=== PATIENT | female | born 1995 | race Caucasian/White ===

== ENCOUNTER 2019-09-11 15:04 | Emergency (ER) | payer OTHER, MEDICAID ==
[~2019-09-11] VITALS: Ht 162.6 cm; Wt 50.0 kg
[2019-09-11] MEDS ORDERED: 0.9 % SODIUM CHLORIDE 10 ML DISP.SYRIN. IV PRN (15:30)
--- NOTE | 2019-09-11 15:46 | PHYS DOC ---
General Adult EDM: Chief Complaint: SEIZURE HPI: HPI: Patient is a 23 year old female who presents via EMS for seizure. Patient was at home and suffered a witnessed seizure prompting mother to call EMS. Patient has a known history of seizures with apparent increased frequency the last 1 to 2 months. Per mother, patient has not been compliant with home antiepileptics and opts to smoke marijuana instead for seizure prophylaxis. Patient hit her head and reportedly has a locked right jaw which has happened with previous seizures. Patient is postictal on arrival Review of Systems: Review of Systems: ROS unable to be obtained given patient's postictal state Heart Score: HEART Score for Chest Pain: HEART Score for Chest Pain Response (Comments) Value History Slighlty/Non-Suspicious 0 ECG Normal 0 Age < 45 0 Risk Factors No Risk Factors 0 Total 0 Risk Factors: Risk Factors: DM, Current or recent (<one month) smoker, HTN, HLP, family history of CAD, obesity. Risk Scores: Score 0 - 3: 2.5% MACE over next 6 weeks - Discharge Home Score 4 - 6: 20.3% MACE over next 6 weeks - Admit for Clinical Observation Score 7 - 10: 72.7% MACE over next 6 weeks - Early Invasive Strategies Current Medications: Current Medications Medications (Trade) Dose Ordered Sig/Ling Start Time Stop Time Status Last Admin Dose Admin Sodium Chloride (Normal Saline Flush) 10 ml QSHIFT PRN 09/11/19 15:30 UNV Physical Exam: PE: Constitutional: Well developed, well nourished, no acute distress, non-toxic appearance. Appears postictal [] HENT: Normocephalic, atraumatic, bilateral external and internal ears normal, no hemotympanum or mesa sign, oropharynx moist, no oral exudates, no dental trauma. Nose normal. No palpable abnormalities of facial bones. Right jaw in locked position consistent with TMJ, no crepitus appreciated [] Eyes: PERRLA, EOMI, conjunctiva normal, no discharge. [] Neck: Normal range of motion, no tenderness, supple, no stridor. [] Cardiovascular:Heart rate regular rhythm, no murmur [] Lungs & Thorax: Bilateral breath sounds clear to auscultation [] Abdomen: Bowel sounds normal, soft, no tenderness, no masses, no pulsatile masses. [] Skin: Warm, dry, no erythema, no rash. [] Back: No tenderness, no CVA tenderness. [] Extremities: No tenderness, no cyanosis, no clubbing, ROM intact, no edema. [] Neurologic: Alert, oriented to person and place only, normal motor function, normal sensory function, no focal deficits noted. [] Psychologic: Affect normal, judgement normal, mood normal. [] Current Patient Data: Labs: Laboratory Tests Test 09/11/19 16:20 09/11/19 16:32 09/11/19 16:57 Urine Opiates Screen Neg Urine Methadone Screen Neg Urine Barbiturates Neg Urine Phencyclidine Screen Neg Urine Amphetamine/Methamphetamine Neg Urine Benzodiazepines Screen Neg Urine Cocaine Screen Neg Urine Cannabinoids Screen Pos Urine Ethyl Alcohol Neg Bedside Urine HCG, Qualitative Hcg negative White Blood Count 10.6 x10^3/uL Red Blood Count 4.71 x10^6/uL Hemoglobin 13.8 g/dL Hematocrit 40.3 % Mean Corpuscular Volume 86 fL Mean Corpuscular Hemoglobin 29 pg Mean Corpuscular Hemoglobin Concent 34 g/dL Red Cell Distribution Width 13.1 % Platelet Count 235 x10^3/uL Neutrophils (%) (Auto) 74 % Lymphocytes (%) (Auto) 17 % Monocytes (%) (Auto) 4 % Eosinophils (%) (Auto) 4 % Basophils (%) (Auto) 1 % Neutrophils # (Auto) 7.9 x10^3/uL Lymphocytes # (Auto) 1.8 x10^3/uL Monocytes # (Auto) 0.4 x10^3/uL Eosinophils # (Auto) 0.4 x10^3/uL Basophils # (Auto) 0.1 x10^3/uL Sodium Level 140 mmol/L Potassium Level 4.1 mmol/L Chloride Level 104 mmol/L Carbon Dioxide Level 26 mmol/L Anion Gap 10 Blood Urea Nitrogen 11 mg/dL Creatinine 0.8 mg/dL Estimated GFR (Cockcroft-Gault) 89.7 BUN/Creatinine Ratio 14 Glucose Level 86 mg/dL Lactic Acid Level 0.7 mmol/L Calcium Level 8.3 mg/dL Total Bilirubin 0.3 mg/dL Aspartate Amino Transf (AST/SGOT) 13 U/L Alanine Aminotransferase (ALT/SGPT) 14 U/L Alkaline Phosphatase 105 U/L Troponin I Quantitative 0.019 ng/mL Total Protein 6.7 g/dL Albumin 3.9 g/dL Albumin/Globulin Ratio 1.4 Current Medications Medications (Trade) Dose Ordered Sig/Ling Route PRN Reason Start Time Stop Time Status Last Admin Dose Admin Sodium Chloride (Normal Saline Flush) 10 ml QSHIFT PRN IV AFTER MEDS AND BLOOD DRAWS 09/11/19 15:30 09/11/19 19:49 DC Morphine Sulfate (Morphine Sulfate) 4 mg 1X ONCE IV 09/11/19 17:00 09/11/19 17:01 DC 09/11/19 17:00 Ondansetron HCl (Zofran) 4 mg 1X ONCE IVP 09/11/19 17:00 09/11/19 17:05 DC 09/11/19 17:01 Diphenhydramine HCl (Benadryl) 25 mg 1X ONCE IVP 09/11/19 17:30 09/11/19 17:31 DC 09/11/19 17:27 Diphenhydramine HCl (Benadryl) 50 mg STK-MED ONCE .ROUTE 09/11/19 17:25 09/11/19 17:25 DC Vital Signs: Vital Signs Date Time Temp Pulse Resp B/P (MAP) Pulse Ox O2 Delivery O2 Flow Rate FiO2 09/11/19 18:32 78 18 100 09/11/19 18:17 86 17 100 09/11/19 18:02 82 100 09/11/19 17:58 78 18 100 09/11/19 17:32 96 100 09/11/19 17:17 82 19 100 09/11/19 17:02 80 99 09/11/19 17:00 18 98 Room Air 09/11/19 16:47 92 20 99 09/11/19 16:32 82 98 09/11/19 16:23 88 19 98 09/11/19 16:02 86 98 09/11/19 15:47 92 20 94 09/11/19 15:32 100 100 09/11/19 15:17 108 22 99 09/11/19 15:05 98.0 106 20 127/82 (97) 97 Room Air 98.0 EKG: EKG: EKG obtained and interpreted by myself at 1544 hrs., normal sinus rhythm at 91 bpm, unremarkable intervals, no axis deviation, no ischemic findings, no STEMI Radiology/Procedures: Radiology/Procedures: PROCEDURE: CT HEAD WO CONTRAST Exam: CT head INDICATION: Seizure TECHNIQUE: Sequential axial images through the head were obtained without the administration of IV contrast. Comparisons: None FINDINGS: No focal parenchymal lesion or hemorrhage is identified. There is no midline shift or sulcal effacement. No acute vascular territory infarction is identified. Webster-white distinction is preserved. The ventricular system is within normal limits without compression hydrocephalus. The basal cisterns are well maintained. The visualized portions of the paranasal sinuses and mastoid air cells are well-pneumatized. No acute fractures. IMPRESSION: No acute intracranial abnormality. Exposure: One or more of the following in the visualized dose reduction techniques were utilized for this examination: 1. Automated exposure control 2. Adjustment of the MA and/or KV according to patient size Use of iterative of reconstructive technique Electronically signed by: Yanely Porter MD (09/11/2019 7:02 PM) [id number] PROCEDURE: FACIAL BONES 3+V EXAM: FACIAL BONES 3+V. HISTORY: Locked jaw on the right. COMPARISON: None. FINDINGS: No facial fractures are identified. This examination does not profile the temporomandibular joints, but the mandibular condyles appear normally seated bilaterally. No facial fractures are identified. The paranasal sinuses and mastoid air cells appear normally aerated. IMPRESSION: 1. This examination does not profile the temporomandibular joints, but the mandibular condyles appear normally seated. Electronically signed by: Osbaldo Nix MD (09/11/2019 7:10 PM) [facility] DICTATED and SIGNED BY: SUKUMAR NIX MD DATE: 09/11/191909 PROCEDURE: CHEST AP ONLY EXAM: CHEST 1 VIEW History: Seizure COMPARISON: None available. TECHNIQUE: Single portable radiograph of the chest FINDINGS: The cardiac silhouette is unremarkable. The lungs are clear bilaterally. The costophrenic sulci are clear and well demarcated. IMPRESSION: No radiographic evidence of an acute cardiopulmonary process. Electronically signed by: David Baker MD (09/11/2019 5:34 PM) [id number] Course & Med Decision Making: Course & Med Decision Making Patient seen by myself on immediate arrival Hemodynamically stable, patent airway, vital signs unremarkable HPI limited, physical exam non-concerning for any emergent pathology Pertinent Labs and Imaging studies ordered and reviewed. (See chart for details) Patient observed in ER for several hours with numerous reexaminations. Improvement in post ictal state back to baseline mentation per apurva who was at bedside Patient suffered mild superficial allergic reaction (rash) that responded well to Benadryl administration Discussed ED course which was grossly non-concerning. Patient's right jaw dysfunction improved drastically throughout ED visit. Discussed importance of close PCP follow-up to address jaw and neurologist follow-up to discuss outpatient epilepsy management. Given that patient had return to baseline mentation, was ambulatory, had no focal neurological deficits, and was tolerating p.o. intake, all in agreement for safe discharge home Strict return precautions discussed at length with good understanding by patient and fianc All questions and concerns addressed prior to ED departure Roxana Disclaimer: Roxana Disclaimer: This electronic medical record was generated, in whole or in part, using a voice recognition dictation system. Departure Departure Impression: Primary Impression: Seizure Additional Impression: Intermittent locking of temporomandibular joint Disposition: 01 HOME, SELF-CARE Condition: IMPROVED Additional Instructions: As discussed prior to ED departure today, please call your PCP first thing on Friday to arrange follow-up in upcoming 2 to 7 days. Please adjust right jaw problems at that time Also, I recommend you calling your neurologist first thing Friday morning to arrange a visit in upcoming 2 to 14 days given increased frequency of seizures You were discharged with no new medications. As discussed, please continue supportive care for right jaw Justicifation of Admission Dx: Justifications for Admission: Justification of Admission Dx: N/A ALMAS YOU DO Sep 11, 2019 15:46
[2019-09-11 16:42] LABS: BARBITURATES NEG (NEG); BENZODIAZEPINES NEG (NEG); CANNABINOIDS POS (NEG); COCAINE NEG (NEG); METHADONE NEG (NEG); OPIATES NEG (NEG); PHENCYCLIDINE NEG (NEG)
[2019-09-11 16:44] LABS: AMPHETAMINE/METHAMPHETAMINE NEG (NEG)
[2019-09-11] MEDS ORDERED: MORPHINE SULFATE 4 MG/ML VIAL. IV ONE (17:00)
[2019-09-11] MEDS ORDERED: ONDANSETRON PF 4 MG/2 ML VIAL. IVP ONE (17:00)
[2019-09-11 17:20] LABS: BASO # 0.1 x10^3/uL (0.0-0.2); BASO % 1 % (0-3); EOS # 0.4 x10^3/uL (0.0-0.7); EOS % 4 % (0-3); HEMATOCRIT 40.3 % (36.0-47.0); HEMOGLOBIN 13.8 g/dL (12.0-15.5); LYMPH # 1.8 x10^3/uL (1.0-4.8); LYMPH % 17 % (24-48); MEAN CORPUSCULAR HEMOGLOBIN 29 pg (25-35); MEAN CORPUSCULAR HGB CONC 34 g/dL (31-37); MEAN CORPUSCULAR VOLUME 86 fL (79-100); MONO # 0.4 x10^3/uL (0.0-1.1); MONO % 4 % (0-9); NEUT # 7.9 x10^3/uL (1.8-7.7); NEUT % 74 % (31-73); PLATELET COUNT 235 x10^3/uL (140-400); RED BLOOD COUNT 4.71 x10^6/uL (3.50-5.40); RED CELL DISTRIBUTION WIDTH 13.1 % (11.5-14.5); WHITE BLOOD COUNT 10.6 x10^3/uL (4.0-11.0)
[2019-09-11 17:23] LABS: CALCIUM 8.3 mg/dL (8.5-10.1); CREATININE 0.8 mg/dL (0.6-1.0); GFR 89.7; POTASSIUM 4.1 mmol/L (3.5-5.1)
[2019-09-11] MEDS ORDERED: diphenhydrAMINE 50 MG/ML VIAL ONE (17:25)
[2019-09-11 17:28] LABS: ALBUMIN 3.9 g/dL (3.4-5.0); ALBUMIN/GLOBULIN RATIO 1.4 (1.0-1.7); TOTAL BILIRUBIN 0.3 mg/dL (0.2-1.0); TOTAL PROTEIN 6.7 g/dL (6.4-8.2)
[2019-09-11] MEDS ORDERED: diphenhydrAMINE 50 MG/ML VIAL IVP ONE (17:30)
--- NOTE | 2019-09-11 17:37 | RAD ---
EXAM: CHEST 1 VIEW History: Seizure COMPARISON: None available. TECHNIQUE: Single portable radiograph of the chest FINDINGS: The cardiac silhouette is unremarkable. The lungs are clear bilaterally. The costophrenic sulci are clear and well demarcated. IMPRESSION: No radiographic evidence of an acute cardiopulmonary process. Electronically signed by: David Baker MD (09/11/2019 5:34 PM) [id number]
[2019-09-11 18:32] VITALS: BP 113/69
--- NOTE | 2019-09-11 19:05 | RAD ---
Exam: CT head INDICATION: Seizure TECHNIQUE: Sequential axial images through the head were obtained without the administration of IV contrast. Comparisons: None FINDINGS: No focal parenchymal lesion or hemorrhage is identified. There is no midline shift or sulcal effacement. No acute vascular territory infarction is identified. Webster-white distinction is preserved. The ventricular system is within normal limits without compression hydrocephalus. The basal cisterns are well maintained. The visualized portions of the paranasal sinuses and mastoid air cells are well-pneumatized. No acute fractures. IMPRESSION: No acute intracranial abnormality. Exposure: One or more of the following in the visualized dose reduction techniques were utilized for this examination: 1. Automated exposure control 2. Adjustment of the MA and/or KV according to patient size Use of iterative of reconstructive technique Electronically signed by: Yanely Porter MD (09/11/2019 7:02 PM) [id number]
--- NOTE | 2019-09-11 19:13 | RAD ---
EXAM: FACIAL BONES 3+V. HISTORY: Locked jaw on the right. COMPARISON: None. FINDINGS: No facial fractures are identified. This examination does not profile the temporomandibular joints, but the mandibular condyles appear normally seated bilaterally. No facial fractures are identified. The paranasal sinuses and mastoid air cells appear normally aerated. IMPRESSION: 1. This examination does not profile the temporomandibular joints, but the mandibular condyles appear normally seated. Electronically signed by: Osbaldo Nix MD (09/11/2019 7:10 PM) [facility]
--- NOTE | 2019-09-14 03:18 | EKG ---
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
== END 2019-09-11 19:32 | disposition home or self-care (01) ==
LOC: ER 15:04
DX: R56.9 Unspecified convulsions (principal); M26.69 Other specified disorders of temporomandibular joint
CPT/HCPCS: 36415; 70150; 70450; 71045; 80053; 80307; 81025; 83605; 84484; 85025; 96374; 96375; 99285; J1200; J2270; J2405; 93005